=== PATIENT | female | born 1960 | race African-American/Black ===

== ENCOUNTER 2017-08-31 20:43 | Emergency (ER) | payer OTHER ==
[~2017-08-31] VITALS: Ht 175.3 cm; Wt 158.8 kg
--- NOTE | ~2017-08-31 | EKG ---
[facility] [place] [address] ELECTROCARDIOGRAM REPORT Name: TURNER NGO [facility] [id number] Admission: 08/31/17 Attend Phys: Discharge: 08/31/17 Date of : 60 Report #: [id number] THIS REPORT FOR: //name// 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
[~2017-08-31 20:43] MED LIST: AZO CRANBERRY1 EAC1; AZOR 10-20 MG1 EACH PO; BACTRIM DS TAB1 EACH PO; BYSTOLIC10 MG PO; BYSTOLIC20 MG PO; FORTAMET1000 MG PO; HYDROCHLOROTH12.5 M1 PO; IBUPROFEN 600600 M1 PO; METOPROLOL SUCC25 M1 PO; NORCO 5-325 TA1 EACH PO; ULTRAM 50MG TAB50 MG PO; VALIUM2 MG PO
[2017-08-31 21:09] LABS: URINE BILIRUBIN NEGATIVE (Negative); URINE BLOOD 2+ (Negative); URINE CLARITY CLEAR; URINE COLOR YELLOW; URINE GLUCOSE-RANDOM* NEGATIVE (Negative); URINE KETONES NEGATIVE (Negative); URINE LEUKOCYTES 1+ (Negative); URINE NITRITE NEGATIVE (Negative); URINE PROTEIN (DIPSTICK) NEGATIVE (Negative); URINE UROBILINOGEN 0.2 E.U./dl (0.2-1.0)
[2017-08-31 21:26] LABS: BACTERIA 1-9 Few /HPF (None Seen); CASTS None Seen /LPF (None Seen); CRYSTALS None Seen /LPF (None Seen); MUCUS None Seen strn/LPF (None Seen); SQUAMOUS 0-3 Few /LPF (0-3); URINE RBC 3-10 Few /HPF (0-2); URINE WBC 0-5 Rare /HPF (0-5)
[2017-08-31 21:35] LABS: EOSINOPHILS 3.4 % (0.0-3.0); HEMATOCRIT 43.3 % (37.0-47.0); HEMOGLOBIN 14.5 gm/dL (12.0-15.0); LYMPHOCYTES 18.7 % (24.0-44.0); MCH 29.4 pg (26.0-34.0); MCHC 33.4 g/dL (28.0-37.0); MCV 87.9 fL (80.0-100.0); MONOCYTES 6.2 % (1.0-8.0); PLATELET COUNT 227 thou/uL (150-400); POLYS 70.7 % (36.0-66.0); RBC 4.92 mil/uL (4.20-5.00); RDW 15.1 % (10.5-14.5); WBC 11.4 thou/uL (4.0-11.0)
[2017-08-31 21:57] LABS: CALCIUM 9.1 mg/dL (8.5-10.1); POTASSIUM 3.1 mmol/L (3.5-5.1)
[2017-08-31 22:03] LABS: ALBUMIN 3.3 g/dL (3.4-5.0); TOTAL BILIRUBIN 0.8 mg/dL (<0.1-1.0); TOTAL PROTEIN 8.2 g/dL (6.4-8.2)
[2017-08-31] MEDS ORDERED: ZIAC 10-6.25 M1 EACH PO (22:52)
[2017-08-31] MEDS ORDERED: AZOR 10-20 MG1 EACH PO (22:52)
[2017-08-31] MEDS ORDERED: HYDROCHLOROTH12.5 M1 PO (22:52)
[2017-08-31] MEDS ORDERED: TRAMADOL 50 MG50 MG PO (22:52)
[2017-08-31] MEDS ORDERED: GLUCOPHAGE1000 MG PO (22:52)
[2017-08-31] MEDS ORDERED: FLUCONAZOLE TOP (22:54)
[2017-08-31] MEDS ORDERED: BACTROBAN15 GM TOP (22:54)
[2017-08-31] MEDS ORDERED: CIPRO500 MG PO (22:54)
[2017-08-31] MEDS ORDERED: PROCTOFOAM15 GM TOP (23:21)
[2017-08-31 23:38] VITALS: BP 156/76
[2018-02-06] MEDS ORDERED: GLUCOPHAGE1000 MG PO (18:54)
[2018-02-06] MEDS ORDERED: GLYBURIDE 5 MG T5 M1 PO (18:54)
[2018-02-06] MEDS ORDERED: HYDROCHLOROTHIA25 M2 PO (18:55)
[2018-02-06] MEDS ORDERED: BYSTOLIC20 MG PO (18:55)
[2018-02-06] MEDS ORDERED: NORVASC5 MG PO (20:25)
[2018-02-06] MEDS ORDERED: PROBIOTIC1 EAC1 PO (21:21)
[2018-02-09] MEDS ORDERED: LEVAQUIN 750 M750 MG PO (09:23)
[2018-02-09] MEDS ORDERED: ASPIR 8181 MG PO (09:24)
[2018-02-09] MEDS ORDERED: CARVEDILOL3.125 MG PO (09:24)
[2018-02-09] MEDS ORDERED: LISINOPRIL10 MG PO (09:24)
[2018-02-09] MEDS ORDERED: ATORVASTATIN CA10 MG PO (09:24)
[2018-02-09] MEDS ORDERED: GLYBURIDE 5 MG T5 M1 PO (09:25)
[2018-02-09] MEDS ORDERED: GLUCOPHAGE1000 MG PO (09:25)
[2018-02-09] MEDS ORDERED: HYDROCHLOROTHIA25 M2 PO (09:25)
[2018-02-09] MEDS ORDERED: PROBIOTIC1 EAC1 PO (09:25)
[2018-02-09] MEDS ORDERED: ANUCORT-HC25 MG RECTAL (09:26)
[2018-02-09] MEDS ORDERED: NORVASC5 MG PO (09:51)
[2018-02-09] MEDS ORDERED: ACYCLOVIR15 GM TOP (09:58)
== END 2017-08-31 23:30 | disposition home or self-care (01) ==
LOC: ER 20:43
PROVIDERS: Physician Assistant
DX: N39.0 Urinary tract infection, site not specified (principal); M51.27 Other intervertebral disc displacement, lumbosacral region; L30.4 Erythema intertrigo; E11.9 Type 2 diabetes mellitus without complications; I10 Essential (primary) hypertension; Z86.2 Personal history of diseases of the blood and blood-forming organs and certain disorders involving the immune mechanism; Z88.0 Allergy status to penicillin; Z88.6 Allergy status to analgesic agent; E87.6 Hypokalemia

== ENCOUNTER 2019-07-05 16:30 | Emergency (ER) | payer OTHER ==
[~2019-07-05] VITALS: Ht 175.3 cm; Wt 139.3 kg
[~2019-07-05 16:30] MED LIST changes: +ACYCLOVIR15 GM TOP; +ANUCORT-HC25 MG RECTAL; +ASPIR 8181 MG PO; +ATORVASTATIN CA10 MG PO; +BACTROBAN15 GM TOP; +CARVEDILOL3.125 MG PO; +CIPRO500 MG PO; +FLUCONAZOLE TOP; +GLUCOPHAGE1000 MG PO; +GLYBURIDE 5 MG T5 M1 PO; +HYDROCHLOROTHIA25 M2 PO; +LEVAQUIN 750 M750 MG PO; +LISINOPRIL10 MG PO; +NORVASC5 MG PO; +PROBIOTIC1 EAC1 PO; +PROCTOFOAM15 GM TOP; +TRAMADOL 50 MG50 MG PO; +ZIAC 10-6.25 M1 EACH PO
[2019-07-05] MEDS ORDERED: BYSTOLIC20 MG PO (17:26)
[2019-07-05] MEDS ORDERED: HYDROCHLOROTHIA25 M2 PO (17:26)
[2019-07-05] MEDS ORDERED: [UNRECOGNIZED DRUG - OTHER] PO (17:29)
[2019-07-05 17:38] VITALS: BP 149/89
[2019-07-05] MEDS ORDERED: BACTRIM DS TAB1 EAC1 PO (17:38)
[2019-07-05] MEDS ORDERED: MOBIC15 MG PO (17:38)
[2019-07-05] MEDS ORDERED: ANUSOL-HC25 MG RECTAL (17:38)
[2019-07-05] MEDS ORDERED: KEFLEX500 M1 PO (17:38)
== END 2019-07-05 17:38 | disposition home or self-care (01) ==
LOC: ER 16:30
DX: L03.316 Cellulitis of umbilicus (principal); I10 Essential (primary) hypertension; E11.9 Type 2 diabetes mellitus without complications; Z88.0 Allergy status to penicillin; Z88.6 Allergy status to analgesic agent; Z88.8 Allergy status to other drugs, medicaments and biological substances; Z79.899 Other long term (current) drug therapy; Z79.82 Long term (current) use of aspirin; Z90.710 Acquired absence of both cervix and uterus

== ENCOUNTER → 2020-04-15 | Outpatient (CLI) | payer OTHER ==
[~2020-04-15] VITALS: Ht 172.7 cm; Wt 139.7 kg
[~2020-04-15] MED LIST changes: +ANUSOL-HC25 MG RECTAL; +BACTRIM DS TAB1 EAC1 PO; +KEFLEX500 M1 PO; +MOBIC15 MG PO; +OZEMPIC1 MG/0.75 SUBQ; +SYNJARDY XR 101 EACH PO; +[UNRECOGNIZED DRUG - OTHER] PO
[2020-04-15 15:03] VITALS: BP 149/97
--- NOTE | 2020-04-15 15:12 | NUR ---
Pain Clinic Assessment: 1. History of Osteoarthritis: Left Lower Extremity Right Lower Extremity History of Rheumatoid Arthritis: 2. Height: 5 ft. 8 in. 172.7 cm. Weight: 308.0 lb. oz. 139.708 kg. Patient's BMI: 46.8 3. Vital Signs: BP: 149/97 Pulse: 80 Resp: 18 Temp: 02 Sat: 98 ECG Mon: 4. Pain Intensity: 5 5. Fall Risk: Dizziness: N Needs help standing or walking: N Fallen in the last 3 months: N Fall risk comments: 6. Patient on Blood Thinner: None 7. History of Hypertension: Y 8. Opioid Therapy greater than 6 weeks: N Opiate Contract Signed: 9. Risk Assessment Tool Provided: LOW 10. Functional Assessment Tool: 53/ 11. Recreational Drug Use: Never Drug Type: Tobacco Use: Never Smoker Tobacco Type: Amount or Packs/day: How Many Years: Alcohol Use: No Frequency: Quant:
--- NOTE | 2020-04-16 07:30 | HPC ---
[facility] [address] [place] [address] PAIN MANAGEMENT CONSULTATION Name: TURNER NGO Room #: REG SAI Samara#: [id number] Admission: 04/15/20 Attend Phys: Taj Ace DO Discharge: Date of : 60 Report #: [id number] THIS REPORT FOR: cc: Vivian Emery MD, Karla L. MD Johnson, James E. DO ~ DATE OF SERVICE: 04/15/2020 CHIEF COMPLAINT: Right low back pain, anterior thigh pain. HISTORY OF PRESENT ILLNESS: As you know, the patient is a 59-year-old, class 3, morbidly obese female who reports acute onset of low back pain, right lower extremity pain and paresthesias that began according to the patient 7 days ago. She does have a history of back pain for which she sought evaluation through her primary care physician in February, but apparently this was on the left side radiating down the left leg. She was sent for evaluation through Orthopedics and apparently received an intramuscular injection, which improved symptoms. She does not recall the diagnosis she was given. She reports that she had returned to the normal activities until 7 days ago when she began to experience this pain in the low back, right buttock radiating down the right leg. She denies injury or trauma that may have led to symptom development. She indicates that she believes it may have occurred when she was sitting on the couch and twisted to get off the couch and stand up that she felt this pain instantaneously occur. She was seen at [facility] ER and at [facility], both of which gave her the diagnosis of sciatica of unspecified laterality and discharged home to follow up with PCP. Due to the lack of improvement with conservative treatment, the patient was subsequently referred to our clinic. The patient indicates today pain is periodic, and transient. She describes the pain as shooting, aching, and sharp. Places current pain score of 5/10, daily average at 8/10, worst pain has been is 10/10. The patient states that standing for any length of time tends to exacerbate symptoms, sitting and utilization of an icepack tends to improve pain. She has been referred to our service to discuss treatment options for suspected lumbar radiculopathy. PAST MEDICAL HISTORY: 1. Diabetes mellitus type 2. 2. Hypertension. 3. Breast cancer. 4. Osteoarthritis. 5. Morbid obesity. PAST SURGICAL HISTORY: 1. Lumpectomy. [facility] [address] [place] [address] PAIN MANAGEMENT CONSULTATION Name: TURNER NGO Room #: REG CL Samara#: [id number] Admission: 04/15/20 Attend Phys: Taj Ace DO Discharge: Date of : 60 Report #: [id number] 2. Cholecystectomy. 3. Hysterectomy. 4. Herniorrhaphy. SOCIAL HISTORY: The patient denies tobacco, alcohol, IV or illicit drug use. 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 She is not in litigation in regards to pain. She is unaccompanied today. REVIEW OF SYSTEMS: Positive for rash, changes in hair texture, diabetes mellitus type 2 and intermittent low back pain. All other review of systems negative per 12-point review of systems other than those listed in history of present illness. ALLERGIES: PENICILLIN AND LISINOPRIL. CURRENT MEDICATIONS: Ozempic 1 mg subcutaneous per week, Synjardy XR 05/1000 mg once a day, hydrochlorothiazide 25 mg per day, Bystolic 20 mg per day, amlodipine/olmesartan 10/20 mg once a day. IMAGING: No imaging available. PHYSICAL EXAMINATION: VITAL SIGNS: Blood pressure 149/97, pulse is 80, respiratory rate 18 and unlabored. The patient is 98% on room air. Height 5 feet 8 inches tall, weight 308 pounds, BMI calculated 46.8. GENERAL: Well-developed, well-nourished, well-hydrated, class 3, morbidly obese female, appears her stated age. She is in mild distress secondary to pain, placing current pain score anywhere from 5-8/10. HEENT: Normocephalic, atraumatic. Pupils equal, round and reactive to light. Extraocular muscles are intact. Sclerae are nonicteric without injection. NEUROLOGIC: Speech is fluent for patient. LUNGS: Clear, no wheeze, rhonchi or rales. CARDIOVASCULAR: Regular. No appreciable gallop, no rub. ABDOMEN: Soft, obese, normoactive bowel sounds. EXTREMITIES: Show no clubbing, no cyanosis, no edema. MUSCULOSKELETAL: Lower extremity strength appears symmetrical 5/5. Slight giveaway strength noted with hip flexion on the right when compared to left. Seated straight leg raising negative. Supine straight leg raising mildly positive on the right, though this is severely limited by body habitus. Muscle bulk and tone appears equal and symmetrical in comparing left lower extremity to right. Ankle clonus is negative. Babinski is negative. She appears to be intact to light touch from L1 through S2 dermatomes. ASSESSMENT: 1. Suspected lumbar radiculopathy. [address] [address] PAIN MANAGEMENT CONSULTATION Name: TURNER NGO Room #: REG SAI Pascual#: [id number] Admission: 04/15/20 Attend Phys: Taj Ace DO Discharge: Date of : 60 Report #: [id number] 2. Lumbar degeneration. 3. Chronic low back pain. 4. Severe morbid obesity. PLAN: 1. Based on today's physical exam and history the patient has provided, the description the patient uses in regards to pain as well as location of symptoms, it would appear she is suffering from a lumbar radiculopathy. She has been given the diagnosis of sciatica, both at the [facility] visit and the [facility] ER visit when she was describing pain radiating from the back down the leg. This is consistent with the findings of our examination today. We discussed with the patient treatment options in generality as we have no specific pathology known to address. We do not have any imaging available to further assess the patient's lumbar region and to help direct care. She reports no new imaging was done at [facility] visit nor at the [facility] visit. I do feel that further evaluation with imaging will be necessary, but we did discuss today the various treatment options for suspected lumbar radiculopathy. We discussed physical therapy, stretching exercise, core strengthening and a concerted effort at weight loss. We discussed medication management suggestions utilizing neuropathic pain medication such as amitriptyline, nortriptyline, Cymbalta, Lyrica or gabapentin. We discussed lumbar epidural injection under fluoroscopic guidance for which the patient was referred to our clinic. We also discussed surgical options, which would include spinal cord stimulator therapy or surgical decompression if necessary. After reviewing the risks and benefits of all proposed treatment options, the patient chose to move forward with a lumbar epidural injection. 2. The patient was advised that due to third democrat payer restrictions, authorization will have to be obtained before the patient could undergo a lumbar epidural injection under fluoroscopic guidance. Authorization could take anywhere from 4-7 working days. Once we have achieved this authorization, we will be more than willing to see the patient back in followup visit to discuss the risks and benefits of procedure and have the patient undergo the injection. 3. The patient was sent for x-ray imaging of the lumbar spine, which shows progression of the degenerative changes at the L5-S1 level when compared to prior CT examination. There is narrowing of the disk space and grade 1 degenerative anterolisthesis at the L5-S1, no vertebral compression fracture. Further imaging, I believe will be necessary. We will be sending the patient for MRI of the lumbar spine without contrast. The findings of the x-ray imaging is confirming our concerns of lumbar radiculopathy and I wish to further evaluate this disk area as there is narrowing and grade 1 anterolisthesis, which could be causing central canal stenosis or lateral recess stenosis, which may require surgical intervention. The patient will undergo MRI of lumbar spine without contrast at her earliest convenience. We will review the findings once it is available. 4. I have taken the liberty of providing the patient a short dosing of tramadol [address] [address] PAIN MANAGEMENT CONSULTATION Name: TURNER NGO Room #: REG SAI Pascual#: [id number] Admission: 04/15/20 Attend Phys: Taj Ace DO Discharge: Date of : 60 Report #: [id number] for pain control. I have given the patient #60 tablets of medication. I did advise the patient that many insurers are currently indicating that patients who are receiving prescriptions for first time dosing mainly receive 1 week of therapy. Unfortunately they are misreading the statute in the state [facility]. The statute specifically states that if this is an acute issue and it is not being provided for a progressive problem that 7-day prescription would be appropriate. We have provided the patient a full 30-day prescription #60 tablets, but did advise the patient there is a likelihood that they will only provide 7 days with the medication, even though they are misinterpreting the law in the state [facility]. If she only receives 7 days' worth of medication, we will have her follow up with us at our clinic if further medication management would be recommended. This will only be provided in a short-term as we await injections. 5. We will see the patient back in followup visit once we have MRI imaging and approval for epidural injection. We are hopeful that this can be completed quite quickly, so that we may help direct the patient's care further and have her undergo the requested epidural injection. 6. We wish to thank the referring physician, Dr. Vivian Emery for the opportunity to see this patient in consultation. We will keep you apprised of her response to treatment as we address lumbar radicular symptoms. Again, we wish to thank you for the opportunity to see this patient in consultation. <ELECTRONICALLY SIGNED> By: Taj Ace DO 04/16/20 [id number] [id number] Taj Ace DO /nt
== END ==
LOC: PAIN 07:41
PROVIDERS: ATTEND Anesthesiology Pain Medicine
DX: M47.816 Spondylosis without myelopathy or radiculopathy, lumbar region (principal); G89.29 Other chronic pain; E66.01 Morbid (severe) obesity due to excess calories; M48.07 Spinal stenosis, lumbosacral region; M47.817 Spondylosis without myelopathy or radiculopathy, lumbosacral region; Z88.8 Allergy status to other drugs, medicaments and biological substances; Z79.899 Other long term (current) drug therapy